=== PATIENT | female | born 1985 | race Caucasian/White ===

== ENCOUNTER → 2017-10-26 | Outpatient (CLI) | payer OTHER | END | disposition home or self-care (01) | LOC: LABWHC1 10:02 | PROVIDERS: ATTEND Obstetrics & Gynecology | DX: Z34.80 Encounter for supervision of other normal pregnancy, unspecified trimester (principal); Z3A.00 Weeks of gestation of pregnancy not specified | CPT/HCPCS: 36415; 84702; 86850; 86900; 86901 ==

== ENCOUNTER 2018-11-18 02:21 | Inpatient (IN) | payer OTHER ==
[2018-11-18] MEDS ORDERED: LIDOCAINE 0.5% (PF) 5 MG/ML (50 ML SDV) SQ PRN (02:32)
[2018-11-18] MEDS ORDERED: CARBOPROST TROMETHAMINE 250 MCG/ML 1 ML AMP IM PRN (02:32)
[2018-11-18] MEDS ORDERED: METHYLERGONOVINE 0.2 MG/ML 1 ML AMP IM PRN (02:32)
[2018-11-18] MEDS ORDERED: TERBUTALINE 1 MG/ML VIAL SQ PRN (02:32)
[2018-11-18] MEDS ORDERED: OXYTOCIN 10 UNIT/ML 1 ML VIAL IM PRN (02:32)
[2018-11-18] MEDS ORDERED: LACTATED RINGERS 1,000 ML IV SCH (02:45)
[2018-11-18 03:06] VITALS: BMI 28.0
--- NOTE | 2018-11-18 03:08 | P.HPOB ---
History of Present Illness H&P Date: 11/18/18 Chief Complaint: Contractions This patient is a pleasant 33-year-old 4 para 1 female estimated date of confinement 11/19/2018 estimated gestational age 39-6/7 weeks who states she' s been hermann since last has become much stronger throughout the night. Patient is now 9 cm dilated in active labor. care is per Dr. Jaimes appears to be uncomplicated with the exception for large for gestational age. Review of Systems Genitourinary: Reports Menstruation: Reports amenorrhea Past Medical History Past Medical History: No Reported History History of Any Multi-Drug Resistant Organisms: None Reported Additional Past Surgical History / Comment(s): rt eye muscle surgery 2011 Past Anesthesia/Blood Transfusion Reactions: No Reported Reaction Past Psychological History: Anxiety, Depression Smoking Status: Never smoker Past Alcohol Use History: None Reported Past Drug Use History: None Reported - Past Family History Mother Family Medical History: No Reported History Additional Family Medical History / Comment(s): grandparents stroke hypertension and diabetic Medications and Allergies Home Medications Medication Instructions Recorded Confirmed Type Pnv,Calcium 72/Iron/Folic Acid 1 tab PO DAILY 11/23/15 11/18/18 History [ Plus Tablet] Allergies Allergy/AdvReac Type Severity Reaction Status Date / Time No Known Allergies Allergy Verified 11/18/18 02:23 Exam Intake and Output 11/17/18 11/17/18 11/18/18 14:59 22:59 06:59 Other: Weight 93.894 kg - OBG Physical Exam Abdomen: bowel sounds normal, no diffuse tenderness, no bruit present, no guarding noted, no hepatomegaly, no splenomegaly, no mass Vulva: both: normal Vagina: normal moisture Cervix: no lesion (Cervix is 9 cm dilated completely effaced and +1 station.), no discharge Uterus: enlarged (Fundal height is consistent with term .) Results blood work shows she is O-, RPR is nonreactive, hepatitis B is negative , rubella is immune, toxoplasmosis was negative, group B strep was negative, anatomy ultrasounds were normal. Assessment and Plan Assessment: This is a pleasant 33-year-old 4 para 1 female 39-6/7 weeks gestation is admitted to labor and delivery in advanced active labor. Plan is anticipate normal spontaneous vaginal delivery. Check the baby's blood type and RhoGAM if indicated. (1) 40 weeks gestation of Current Visit: Yes Status: Acute Code(s): Z3A.40 - 40 WEEKS GESTATION OF SNOMED Code(s): 45446306 (2) Normal labor Current Visit: Yes Status: Acute Code(s): O80 - ENCOUNTER FOR FULL-TERM UNCOMPLICATED DELIVERY; Z37.9 - OUTCOME OF DELIVERY, UNSPECIFIED SNOMED Code(s ): 42807871 (3) Rh negative status during Current Visit: Yes Status: Acute Code(s): O26.899 - OTH RELATED CONDITIONS, UNSPECIFIED TRIMESTER; Z67.91 - UNSPECIFIED BLOOD TYPE, RH NEGATIVE SNOMED Code(s): 239995876
[2018-11-18 03:26] LABS: Basophils % (A) 0 %; Eosinophils # (A) 0.1 k/uL (0-0.7); Eosinophils % (A) 1 %; HCT 40.7 % (34.0-46.0); Lymphocytes # (A) 1.6 k/uL (1.0-4.8); Lymphocytes % (A) 19 %; MCH 30.8 pg (25.0-35.0); MCV 96.1 fL (80.0-100.0); Mean Platelet Volume 7.5; Monocytes # (A) 0.6 k/uL (0-1.0); Monocytes % (A) 7 %; Neutrophils % (A) 70 %; Platelet Count 222 k/uL (150-450); RBC 4.24 m/uL (3.80-5.40); RDW 13.8 % (11.5-15.5); WBC 8.6 k/uL (3.8-10.6)
[2018-11-18] MEDS ORDERED: BENZOCAINE/MENTHOL SPRAY 1 GM/SPRAY AEROSOL TOPICAL PRN (04:48)
[2018-11-18] MEDS ORDERED: HYDROCORTISONE 2.5% RECTAL CREAM 30 GM TUBE RECTAL PRN (04:48)
[2018-11-18] MEDS ORDERED: LANOLIN CREAM 5 GM TUBE TOPICAL PRN (04:48)
[2018-11-18] MEDS ORDERED: diphenhydrAMINE 25 MG CAP PO PRN (04:48)
[2018-11-18] MEDS ORDERED: diphenhydrAMINE 50 MG/ML 1 ML VIAL IVP PRN (04:48)
[2018-11-18] MEDS ORDERED: SIMETHICONE 80 MG CHEWABLE PO PRN (04:48)
[2018-11-18] MEDS ORDERED: WITCH HAZEL 1 EACH MED..PAD TOPICAL PRN (04:48)
[2018-11-18] MEDS ORDERED: ZOLPIDEM 5 MG TAB PO PRN (04:48)
[2018-11-18] MEDS ORDERED: BISACODYL 10 MG SUPP RECTAL PRN (04:48)
[2018-11-18] MEDS ORDERED: Rhogam IMMUNE GLOBULIN 1,500 UNIT/1 ML IM ONE (04:48)
--- NOTE | 2018-11-18 04:55 | P.PROBDLV ---
Vaginal Delivery Note - . Vaginal Delivery Note: Normal spontaneous vaginal delivery viable male infant Apgars 8 and 9 delivery time is 0420 hrs. Please see dictated H&P for intimate details of this patient's admission. In brief summary this is a pleasant 33-year-old 4 para 1 female 39-6/7 weeks gestation admitted to labor and delivery with complaints of regular painful contractions. On admission patient is 9 cm dilated has artificial rupture membranes for clear fluid. Patient does say 9 to a rim for approximately 1-1/2-2 hours and therefore she has some position changes. Patient then has the urge to push and pushes uncontrollably and the presence of the nurse precipitously delivers a viable male infant Apgars 8 and 9 delivery time was 0420 hours over an intact perineum. There is a nuchal cord 1. This is a vigorous viable male . After delivery of the infant the umbilical cord is doubly clamped and cut. It appears to be trivascular. Cord blood was obtained for Rh status. The placenta spontaneously delivered intact. Inspection of perineum shows a second-degree laceration over to the patient's left side which is infiltrated 1% lidocaine and then reapproximated using a 3-0 Vicryl in a running fashion. Excellent reapproximation is noted. Estimated blood loss is 250 mL. Of note the patient did lose her IV when she was pushing however not bleeding however we will replace the IV and begin Pitocin per protocol. All counts correct 3. There are no complications. Infant and mother stable delivery room.
[2018-11-18] MEDS ORDERED: OXYTOCIN 20 UNITS/1000 ML NS 1,000 ML IV SCH (05:00)
[2018-11-18] MEDS: IBUPROFEN 600 MG TAB PO PRN ×4 (05:04→22:28)
[2018-11-18] MEDS: SENNOSIDES-DOCUSATE SODIUM 1 EACH TAB PO SCH ×2 (13:09→20:01)
[2018-11-18] MEDS: ACETAMINOPHEN TAB 325 MG TAB PO PRN ×2 (15:31→20:00)
[2018-11-19] MEDS: ACETAMINOPHEN TAB 325 MG TAB PO PRN ×2 (02:11→09:11)
[2018-11-19] MEDS: IBUPROFEN 600 MG TAB PO PRN (05:25)
[2018-11-19] MEDS: SENNOSIDES-DOCUSATE SODIUM 1 EACH TAB PO SCH (09:11)
--- NOTE | 2018-11-19 09:19 | P.DS ---
Providers Date of admission: 11/18/18 02:30 Expected date of discharge: 11/19/18 Attending physician: Michelle Cui Primary care physician: Misha Mcahuca [facility] Course: This is a 33-year-old female 4 para 1 with an estimated date of confinement of 11/19/2018, estimated gestational age of 39-6/7 weeks, who presented to labor and delivery with complaints of contractions. She delivered vaginally a viable male infant on 11/18/2018 with scores of 8 at 1 minute and 9 at 5 minutes and weight of 9 lbs. 4 oz. Her course has been uncomplicated. Lochia is decreasing. Pain is well-controlled with ibuprofen. She is breast-feeding. Vital signs are stable. Abdomen is soft with fundus firm and nontender. Extremities show negative Homans. Impression is status post vaginal delivery day #1. Plan is to discharge home today. Routine instructions are given. She will be given a prescription for breast pump. She is advised follow-up in the office in 6 weeks for a check. She is advised to call the office if she has any further questions or concerns prior to her appointment time. Procedures: Spontaneous vaginal delivery of a viable male infant on 11/18/2018 Patient Condition at Discharge: Stable Plan - Discharge Summary New Discharge Prescriptions: No Action Pnv,Calcium 72/Iron/Folic Acid [ Plus Tablet] 1 tab PO DAILY Discharge Medication List Pnv,Calcium 72/Iron/Folic Acid [ Plus Tablet] 1 tab PO DAILY 11/23/15 [ History] Follow up Appointment(s)/Referral(s): Michelle Cui DO [Doctor of Osteopathic Medicine] - 6 Weeks Activity/Diet/Wound Care/Special Instructions: Instructions 1. Do not begin any exercise program for 3 weeks. 2. Do not resume sexual relations for 3 weeks or longer if uncomfortable. 3. You may take tub baths or showers at any time. 4. You may use tampons if desired after 3 weeks. 5. Keep the area of episiotomy (stitches) clean and dry. 6. If you are not nursing, wear a good fitting, supportive bra during the day and limit fluid intake for at least 1 week to prevent breast engorgement. 7. Call the office, [phone], within the next week to make appointment for your 6 week checkup if it has not already been made. 8. Report any of the following occurrences to the doctor promptly: a. Heavy, excessive bleeding b. Chills, fever c. Burning or frequency of urination d. Pain or redness and breasts if nursing e. Increasing pain or swelling in episiotomy (stitches). In addition to the above instructions, the following additional should be followed: 1. No heavy lifting or straining (exercising) until after 6 week checkup. 2. Keep abdominal incision clean and dry: You may wear a dressing if more comfortable. 3. Make office appointment for 10 days after going home or as instructed by her doctor. Discharge Disposition: HOME SELF-CARE
[2018-11-19 09:46] VITALS: BP 108/65; PULSE 94; RESP 16; TEMP 98.8
== END 2018-11-19 13:55 | disposition home or self-care (01) | DRG 807 ==
LOC: FBPOP 02:21 → 4FBP 02:30
PROVIDERS: ADMIT Obstetrics & Gynecology; ATTEND Obstetrics & Gynecology
PROC: 0KQM0ZZ Repair Perineum Muscle, Open Approach (ICD-10-PCS; principal; 2018-11-18)
PROC: 10E0XZZ Delivery of Products of Conception, External Approach (ICD-10-PCS; 2018-11-18)
PROC: 10907ZC Drainage of Amniotic Fluid, Therapeutic from Products of Conception, Via Natural or Artificial Opening (ICD-10-PCS; 2018-11-18)
PROC: 3E0234Z Introduction of Serum, Toxoid and Vaccine into Muscle, Percutaneous Approach (ICD-10-PCS; 2018-11-18)
DX: O70.1 Second degree perineal laceration during delivery (principal); Z37.0 Single live birth; O69.81X0 Labor and delivery complicated by cord around neck, without compression, not applicable or unspecified; O26.893 Other specified pregnancy related conditions, third trimester; Z3A.39 39 weeks gestation of pregnancy; Z82.49 Family history of ischemic heart disease and other diseases of the circulatory system; Z67.91 Unspecified blood type, Rh negative
CPT/HCPCS: 59025; 85025; 85461; 86850; 86900; 86901; 99213

== ENCOUNTER → 2021-02-04 | Outpatient (CLI) | payer OTHER ==
--- NOTE | 2021-02-05 11:01 | MM ---
Reason for exam: screening (asymptomatic). Baseline mammogram. History: Family history of breast cancer in paternal grandmother at age 60. Physical Findings: Nurse Summary: 0.5cm nodule in the right breast at 7 o'clock (nurse ms). MG Screening Mammo w CAD Bilateral CC and MLO view(s) were taken. The breast tissue is extremely dense which could obscure a lesion on mammography. There are benign appearing round calcifications bilaterally. There is no discrete abnormality. These results were verbally communicated with the patient and result sheet given to the patient on 02/04/21. ASSESSMENT: Incomplete: need additional imaging evaluation, BI-RAD 0 RECOMMENDATION: Ultrasound of the right breast. (palpable by nurse)
--- NOTE | 2021-02-05 11:03 | USB ---
Reason for exam: additional evaluation requested from abnormal screening. History: Family history of breast cancer in paternal grandmother at age 60. US Breast Workup Limited RT Technologist: Mona Muir Right limited breast ultrasound including focal area of concern, retroareolar and axilla demonstrates no cystic or solid lesion seen. These results were verbally communicated with the patient and result sheet given to the patient on 02/04/21. ASSESSMENT: Negative, BI-RAD 1 RECOMMENDATION: Return to routine screening mammogram schedule for both breasts.
== END | disposition home or self-care (01) ==
LOC: RADMAMWWP 12:55
PROVIDERS: ATTEND Family Medicine
DX: Z12.31 Encounter for screening mammogram for malignant neoplasm of breast (principal); R92.2 Inconclusive mammogram; Z80.3 Family history of malignant neoplasm of breast
CPT/HCPCS: 77067